=== PATIENT | female | born 1955 | race Hispanic/Latino ===

== ENCOUNTER 2020-04-17 19:15 | Inpatient (IN) | payer MEDICARE, OTHER ==
[~2020-04-17] VITALS: Ht 154.9 cm; Wt 52.3 kg
[2020-04-17] MEDS ORDERED: ACETAMINOPHEN EXTRA STRENGTH 500 MG TABLET ONE (19:59)
[2020-04-17 20:34] LABS: BASOPHILS % (AUTO) 0.4 % (0.0-5.0); EOSINOPHILS % (AUTO) 0.2 % (0.0-8.0); HEMATOCRIT 35.5 % (36-48); LYMPHOCYTES % (AUTO) 11.1 % (21.0-51.0); MEAN CORPUSCULAR HEMOGLOBIN 32.3 pg (27.0-33.0); MEAN CORPUSCULAR HGB CONC 33.5 g/dL (32.0-36.0); MEAN CORPUSCULAR VOLUME 96.5 fL (79-99); MONOCYTES % (AUTO) 8.6 % (3.0-13.0); NEUTROPHILS % (AUTO) 77.6 % (40.0-77.0); PLATELET COUNT (AUTO) 492 K/uL (130-400); RED BLOOD CELL COUNT(AUTO) 3.68 MIL/uL (4.00-5.50); RED CELL DISTRIBUTION WIDTH 13.3 % (11.0-15.5); WHITE BLOOD COUNT (AUTO) 16.1 K/uL (4.8-10.8)
[2020-04-17 20:42] LABS: POTASSIUM 3.9 mmol/L (3.5-5.1)
[2020-04-17 20:56] LABS: ALBUMIN 2.3 g/dL (3.5-5.0); BILIRUBIN,TOTAL 0.5 mg/dL (0.2-1.0); CREATININE 1.3 mg/dL (0.5-1.5); TOTAL PROTEIN, SERUM 7.6 g/dL (6.0-8.3)
[2020-04-17 23:50] LABS: APPEARANCE,URINE Clear (CLEAR); BILIRUBIN,URINE Negative (NEGATIVE); COLOR,URINE Yellow (YELLOW); GLUCOSE, URINE (UA) Negative (NEGATIVE); KETONES,URINE Negative (NEGATIVE); LEUKOCYTE ESTERASE ,URINE Small (NEGATIVE); NITRATE,URINE Negative (NEGATIVE); OCCULT BLOOD,URINE Negative (NEGATIVE); PH,URINE 7.5 (5.0-8.0); PROTEIN,URINE Negative (NEGATIVE); UROBILINOGEN,URINE 0.2 mg/dL (0.2-1.0)
[2020-04-18 00:06] LABS: BACTERIA,URINE Rare /HPF (None Seen); RBC,URINE None Seen /HPF (0-1); SQUAMOUS EPITHELIAL CELL,UR Rare /HPF (0-2)
[2020-04-18] MEDS ORDERED: CEFTRIAXONE SODIUM 1 GM ONE (01:37)
[2020-04-18] MEDS: LACTATED RINGERS 1000ML 1,000 ML IV SCH ×3 (02:30→21:29)
[2020-04-18] MEDS ORDERED: LACTATED RINGERS 1000ML 1,000 ML IV ONE (02:44)
[2020-04-18] MEDS ORDERED: ACETAMINOPHEN EXTRA STRENGTH 500 MG TABLET PO PRN (02:45)
[2020-04-18 07:11] LABS: BASOPHILS % (AUTO) 0.5 % (0.0-5.0); EOSINOPHILS % (AUTO) 0.3 % (0.0-8.0); HEMATOCRIT 33.1 % (36-48); LYMPHOCYTES % (AUTO) 6.2 % (21.0-51.0); MEAN CORPUSCULAR HGB CONC 33.5 g/dL (32.0-36.0); MEAN CORPUSCULAR VOLUME 98.5 fL (79-99); MONOCYTES % (AUTO) 8.1 % (3.0-13.0); NEUTROPHILS % (AUTO) 83.1 % (40.0-77.0); PLATELET COUNT (AUTO) 454 K/uL (130-400); RED BLOOD CELL COUNT(AUTO) 3.36 MIL/uL (4.00-5.50); RED CELL DISTRIBUTION WIDTH 13.4 % (11.0-15.5); WHITE BLOOD COUNT (AUTO) 15.3 K/uL (4.8-10.8)
[2020-04-18 07:29] LABS: BILIRUBIN,TOTAL 0.3 mg/dL (0.2-1.0); CREATININE 1.3 mg/dL (0.5-1.5); CRP QUANTITATIVE 119.7 mg/L (0.00-9.0); POTASSIUM 4.3 mmol/L (3.5-5.1); TOTAL PROTEIN, SERUM 6.5 g/dL (6.0-8.3)
[2020-04-18] MEDS ORDERED: ENOXAPARIN SODIUM 30 MG/0.3 ML SQ ONE (08:15)
[2020-04-18] MEDS ORDERED: FAMOTIDINE/PF 20 MG/2 ML VIAL IV ONE (08:15)
[2020-04-18] MEDS: ENOXAPARIN SODIUM 30 MG/0.3 ML SQ SCH (08:24)
[2020-04-18] MEDS: FAMOTIDINE/PF 20 MG/2 ML VIAL IV SCH (08:25)
[2020-04-18 14:32] VITALS: BP 130/71
[2020-04-18] MEDS: CEFTRIAXONE SODIUM 1 GM IVP SCH (15:15)
--- NOTE | 2020-04-18 15:50 | NUR ---
CM NOTE/IA MEET WITH PATIENT IN ROOM. PER PATIENT, LIVES ALONE, HAS FAMILY SUPPORT, INDEPENDENT WITH ADLS, DRIVES, NO DME IN USE, AND FEELS SAFE TO RETURN TO RESIDENCE. SELF REFERRAL/MEDICINE PACKET GIVEN WELL GOOD RX COUPON, PATIENT VERBALIZED UNDERSTANDING OF PACKETS AND COUPON. Addendum: 04/18/20 at 1553 by MARIO HERNANDEZ RN CM Amended: Links added.
[2020-04-18 16:17] VITALS: BP 125/79
[2020-04-18 20:02] VITALS: BP 134/76
[2020-04-18] MEDS: METRONIDAZOLE 500MG/100ML BAG 100 ML IV SCH (21:52)
[2020-04-18] MEDS ORDERED: LEVOFLOXACIN 500 MG/D5W 100 ML 100 ML IV SCH (22:00)
[2020-04-18 23:46] VITALS: BP 128/73
[2020-04-19] MEDS: ACETAMINOPHEN 325 MG TAB PO PRN ×2 (00:09→22:30)
[2020-04-19] MEDS: CEFTRIAXONE SODIUM 1 GM IVP SCH ×2 (02:04→14:45)
[2020-04-19 03:36] VITALS: BP 100/60
[2020-04-19 04:18] LABS: BASOPHILS % (AUTO) 0.5 % (0.0-5.0); EOSINOPHILS % (AUTO) 0.5 % (0.0-8.0); HEMATOCRIT 29.9 % (36-48); LYMPHOCYTES % (AUTO) 11.9 % (21.0-51.0); MEAN CORPUSCULAR HGB CONC 32.8 g/dL (32.0-36.0); MEAN CORPUSCULAR VOLUME 97.7 fL (79-99); MONOCYTES % (AUTO) 8.7 % (3.0-13.0); NEUTROPHILS % (AUTO) 75.5 % (40.0-77.0); PLATELET COUNT (AUTO) 488 K/uL (130-400); RED BLOOD CELL COUNT(AUTO) 3.06 MIL/uL (4.00-5.50); RED CELL DISTRIBUTION WIDTH 13.5 % (11.0-15.5); WHITE BLOOD COUNT (AUTO) 10.3 K/uL (4.8-10.8)
[2020-04-19 04:47] LABS: ALBUMIN 1.7 g/dL (3.5-5.0); BILIRUBIN,TOTAL 0.3 mg/dL (0.2-1.0); CREATININE 1.1 mg/dL (0.5-1.5); CRP QUANTITATIVE 117.5 mg/L (0.00-9.0); MAGNESIUM 1.6 mg/dL (1.80-2.40); PHOSPHORUS 3.5 mg/dL (2.5-4.9); POTASSIUM 3.9 mmol/L (3.5-5.1); TOTAL PROTEIN, SERUM 6.1 g/dL (6.0-8.3)
[2020-04-19] MEDS: METRONIDAZOLE 500MG/100ML BAG 100 ML IV SCH ×3 (05:42→21:18)
[2020-04-19] MEDS ORDERED: MAGNESIUM 2GM PREMIX 50ML 50 ML IV ONE (05:42)
[2020-04-19] MEDS ORDERED: MAGNESIUM 2GM PREMIX 50ML 50 ML IV PRN (05:45)
[2020-04-19 08:00] VITALS: BP 106/58
[2020-04-19] MEDS: FAMOTIDINE/PF 20 MG/2 ML VIAL IV SCH (09:26)
[2020-04-19] MEDS: ENOXAPARIN SODIUM 30 MG/0.3 ML SQ SCH (09:31)
[2020-04-19 11:00] VITALS: BP 106/59
[2020-04-19 16:00] VITALS: BP 119/75
[2020-04-19] MEDS: LACTATED RINGERS 1000ML 1,000 ML IV SCH (19:17)
[2020-04-19 20:13] VITALS: BP 129/71
--- NOTE | 2020-04-19 21:20 | NUR ---
MEDS SHIFT ASSESSMENT DONE, PLEASE REFER TO CHART. DUE MEDS ADMINISTERED, TOLERATED WELL. NO DISTRESS NOTED. KEPT RESTED AND COMFORTABLE IN BED. CALL LIGHT WITHIN REACH. WILL MONITOR PT. Addendum: 04/20/20 at 0045 by RADHA YEE RN RN Amended: Links added.
[2020-04-19] MEDS ORDERED: LEVOFLOXACIN 250 MG/D5W 50ML 50 ML IVPB SCH (21:30)
--- NOTE | 2020-04-19 22:30 | NUR ---
PAIN PT COMPLAINTS OF HEADACHE. MEDICATED WITH TYLENOL PO. KEPT RESTED AND COMFORTABLE. CALL LIGHT WITHIN REACH. WILL MONITOR PT.
[2020-04-19 23:41] VITALS: BP 114/72
--- NOTE | 2020-04-20 02:00 | NUR ---
ROUNDS PT RESTING WELL, FAIRLY ASLEEP. NO DISTRESS NOTED. KEPT UNDISTURBED FOR NOW WILL MONITOR PT. CALL LIGHT WITHIN REACH.
[2020-04-20 03:40] VITALS: BP 107/63
--- NOTE | 2020-04-20 05:00 | NUR ---
MEDS PT RESTING WELL, STILL FAIRLY ASLEEP. NO DISTRESS NOTED. KEPT UNDISTURBED. FLAGYL DOSE HUNG. KEPT COMFORTABLE IN BED. FOR MORE CARE.
[2020-04-20] MEDS: METRONIDAZOLE 500MG/100ML BAG 100 ML IV SCH (05:05)
[2020-04-20 05:23] LABS: BASOPHILS % (AUTO) 0.6 % (0.0-5.0); EOSINOPHILS % (AUTO) 0.7 % (0.0-8.0); HEMATOCRIT 31.2 % (36-48); LYMPHOCYTES % (AUTO) 15.1 % (21.0-51.0); MEAN CORPUSCULAR HEMOGLOBIN 32.9 pg (27.0-33.0); MEAN CORPUSCULAR VOLUME 99.7 fL (79-99); MONOCYTES % (AUTO) 8.7 % (3.0-13.0); NEUTROPHILS % (AUTO) 72.9 % (40.0-77.0); PLATELET COUNT (AUTO) 598 K/uL (130-400); RED BLOOD CELL COUNT(AUTO) 3.13 MIL/uL (4.00-5.50); RED CELL DISTRIBUTION WIDTH 13.7 % (11.0-15.5); WHITE BLOOD COUNT (AUTO) 8.5 K/uL (4.8-10.8)
[2020-04-20 05:40] LABS: POTASSIUM 3.9 mmol/L (3.5-5.1)
[2020-04-20 08:00] VITALS: BP 111/71
[2020-04-20] MEDS: ENOXAPARIN SODIUM 30 MG/0.3 ML SQ SCH (09:00)
[2020-04-20] MEDS: FAMOTIDINE/PF 20 MG/2 ML VIAL IV SCH (09:00)
[2020-04-20] MEDS ORDERED: LACTOBACILLUS RHAMNOSUS GG 1 EACH CAP.SPRINK PO SCH (09:00)
[2020-04-20] MEDS ORDERED: METR-152 PO (10:07)
[2020-04-20] MEDS ORDERED: LEVO250T59 PO (10:07)
[2020-04-20] MEDS ORDERED: ACID1TAB PO (10:07)
[2020-04-20 11:00] VITALS: BP 141/70
--- NOTE | 2020-04-20 13:55 | NUR ---
DISCHARGE PATIENT GIVEN DISCHARGE INSTRUCTIONS VIA TEACH BACK. 20G PIV TO LEFT HAND DISCONTINUED, TIP INTACT. PATIENT GIVEN RX FOR FLAGYL, LACTINEX AND LEVOFLOXACIN. PATIENT TO FOLLOW UP WITH PCP IN 3 DAYS. PATIENT STABLE AT THIS TIME AND TAKEN TO ER LOBBY VIA WHEELCHAIR BY VIRIDIANA DELGADILLO FOR DISCHARGE.
== END 2020-04-20 14:30 | disposition home or self-care (01) | DRG 641 ==
LOC: EDH 19:15 → EDHIP 19:16 → 3AH 04-18 14:23
PROVIDERS: ADMIT Internal Medicine; ATTEND Internal Medicine
DX: E86.0 Dehydration (principal); E44.0 Moderate protein-calorie malnutrition; E86.1 Hypovolemia; R19.7 Diarrhea, unspecified; D72.829 Elevated white blood cell count, unspecified; Z20.828 Contact with and (suspected) exposure to other viral communicable diseases; Z90.710 Acquired absence of both cervix and uterus; Z88.0 Allergy status to penicillin
CPT/HCPCS: 36415; 71045; 80048; 80053; 81001; 82270; 82550; 83605; 83615; 83630; 83735; 84100; 84145; 84484; 85025; 85378; 86140; 87040; 87046; 87071; 87088; 87205; 87486; 87507; 87581; 87633; 87798; 93005; 93970; G0378; J0696; J1650; J1956; J3475; J3490; J7120